=== PATIENT | female | born 1955 | race Caucasian/White ===

== ENCOUNTER → 2019-09-03 15:26 | Outpatient (CLI) | payer BC, SELFPAY ==
--- NOTE | ~2019-09-03 | MM_ITS ---
EXAMINATION: MM screening violette BI w soto HISTORY: Screening mammogram TECHNIQUE: Craniocaudal and mediolateral oblique 3-D tomosynthesis images were obtained and synthetic 2-D images were generated. CAD analysis was submitted and interpreted. COMPARISON: 06/21/2017, 11/14/2014 bilateral digital screening mammogram examinations BREAST PARENCHYMAL COMPOSITION: The breasts are almost entirely fatty. FINDINGS: There is no evidence of suspicious mass, calcification, or architectural distortion to sugg est malignancy in either breast. There has been no suspicious interval change. IMPRESSION: 1. No mammographic evidence of malignancy. 2. Recommend routine screening mammography in one year. BI-RADS Category 1: Negative Reviewed, dictated and finalized at location A.
== END ==
DX: Z12.31 Encounter for screening mammogram for malignant neoplasm of breast (principal)
CPT/HCPCS: 77063; 77067

== ENCOUNTER 2021-06-29 18:58 | Emergency (ER) | payer MEDICARE, SELFPAY ==
--- NOTE | ~2021-06-29 | XR_ITS ---
EXAMINATION: XR wrist RT min 3V EXAM DATE: 06/29/2021 19:25 INDICATION: Fall, right wrist pain. Initial encounter. TECHNIQUE: Right wrist frontal, frontal with ulnar deviation, oblique and lateral projections obtain ed and reviewed. There is no prior study for comparison. FINDINGS: There is acute closed posttraumatic right radial distal metaphyseal fracture with mild comm inution. There is intra-articular extension identified into the radiocarpal joint. There is mild vola r angulation and displacement. The ulna, carpal bones appear intact. IMPRESSION: Right radial distal metaphyseal intra-articular fractures. Reviewed, dictated and finalized at location A. LE INSTALLATION HELPER
[2021-06-29 19:18] VITALS: BP 191/74; PULSE 59; RESP 18; TEMP 35.8; O2SAT 99
--- NOTE | 2021-06-29 20:27 | ED.UPPEXIN ---
HPI - Extremity Injury (Upper) General Chief Complaint: Extremity Injury, Upper Stated Complaint: Right wrist pain and back pain Time Seen by Provider: 06/29/21 20:27 Source: patient, RN notes reviewed and old records reviewed Mode of arrival: ambulatory Limitations: no limitations History of Present Illness HPI narrative: 66-year-old female presents to the [facility] with complaints of right wrist pain after falling out of hot tub. Had a FOOSH injury. 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 No snuffbox tenderness. Sensation intact and capillary refill under 2 seconds. Related Data Allergies Allergy/AdvReac Type Severity Reaction Status Date / Time No Known Allergies Allergy Unknown Verified 06/29/21 20:26 Penicillins Allergy Unknown Unknown Verified 06/29/21 20:26 Review of Systems Review of Systems: All systems reviewed & are unremarkable except as noted in HPI and below Constitutional: Constitutional: Reports no additional constitutional complaints, Denies chills and Denies fever(s) Eyes: Eyes: Reports no additional eye complaints ENT: Reports system reviewed and no additional complaints, except as documented Cardiovascular: Cardiovascular: Reports no additional cardiovascular complaints and Denies chest pain Respiratory: Respiratory: Reports no additional respiratory complaints and Denies cough Gastrointestinal: Gastrointestinal: Reports no additional gastrointestinal complaints, Denies abdominal pain, Denies nausea and Denies vomiting Musculoskeletal: Musculoskeletal: Reports as per HPI and Reports arthralgias (Right wrist) Integumentary/Breasts: Skin/Breast: Reports system reviewed and no additional complaints, except as docu Psychiatric: Psychiatric: Reports no additional psychiatric complaints Allergic/Immunologic: Allergic/Immunologic: Reports no additional allergic/immunologic complaints [facility] Past Medical History Medical History (Updated 06/29/21 @ 20:41 by Amrita Reyes) Hypertension Surgical History Surgical History (Updated 06/29/21 @ 20:41 by Amrita Reyes) No significant past surgical history Family History Family History Father Patient's father is Social History Social History Smoking status: Never smoker Alcohol intake: current Comments At the time of my signature, I reviewed and agree with the nursing past medical, surgical, social, and family history. There is no relevant family history pertinent to the patient complaint. Exam Const: General: no acute distress, alert and ill appearing chronically Nutritional Appearance: well nourished Orientation/consciousness: patient oriented x3 Limitations: no limitations HENMT: Head: normal to inspection Eyes: Pupils: Equal, round and reactive pupils present Neck: Neck: normal visual inspection, no lymphadenopathy and no meningeal signs Chest: Chest palpation & inspection: normal inspection of the chest Resp: Effort & Inspection: normal respiratory effort and no use of accessory muscles Auscultation: clear to auscultation bilaterally, no crackles, no rales, no rhonchi and no wheezes Cardio: Rate: regular rate Rhythm: regular rhythm GI: GI Palp: Yes Soft to palpation and Yes Tenderness to palpation present (GI) Skin: General skin exam: normal color Rashes: no rashes Wounds: no wounds Neuro: General: patient oriented x3, moves all extremities, no meningeal signs and no focal motor deficits Speech: normal speech Gait exam (Neuro): Normal gait present Extrem: General: normal to inspection and full ROM Right upper extremity: wrist tenderness of the distal radius, swelling of the dorsal wrist and other, normal vascular exam and radial pulse present; no ecchymosis, no penetrating wound and no deformity Psych: Appearance: grossly normal and well kempt Mental Status: mental status grossly normal Affect: normal affect Attitude:
== END 2021-06-29 20:40 | disposition home or self-care (01) ==
PROVIDERS: Emergency Provider Nurse Practitioner; PCP Family Medicine
DX: S52.571A Other intraarticular fracture of lower end of right radius, initial encounter for closed fracture (principal); W19.XXXA Unspecified fall, initial encounter; I10 Essential (primary) hypertension
CPT/HCPCS: 29125; 73110; 99214; A4565; G0463

== ENCOUNTER 2021-09-16 08:30 | Outpatient (RCR) | payer MEDICARE, SELFPAY ==
--- NOTE | 2021-08-21 10:01 | OTOPEVAL ---
OCCUPATIONAL THERAPY INITIAL EVALUATION REPORT Thank you for referring Kayley Rose to [facility].? The patient is scheduled to be seen for therapy? 2x/week for 4 weeks. Please review, sign, date and return this plan of care LINNEA. I agree with and certify that the following plan of care is medically necessary. Referring Physician Date Referring Provider: Cristian Peoples MD *OT Outpatient Evaluation Start: 08/21/21 09:00 Outpatient Past Medical History Past Medical History Source of Past Medical History Recalled from Previous Visit, Confirmed with Patient/Family Cardiovascular History Hx Hypertension Yes Musculoskeletal History Hx Arthritis Yes: lumbar and sacral Evaluation Information Problem Diagnosis Right distal radius fracture Onset 06/29/21 Cause Fall Additional Evaluation Detail Treated conservatively with casting and she is now in a removable brace. Subjective Information Patient reports she progressed Query Text:As Reported By Patient/ from a cast to a removable Family brace on 08/12/21. Orders report to wear the brace x4 weeks, then wean out. She reports difficulties using the right hand to feed herself, starting her car, and washing her hair. She reports being very apprehensive to use her right hand. Prior Level of Function Activity Level (Last 3 Months) Hand Dominance Right Activity of Daily Living Ability Independent Comments Additional Prior Level of Function Patient reports being back to Comments being independent with ADLs and driving. She is doing some cooking and cleaning, but only with her left hand. At this time her is doing most of the cooking and cleaning. Her son is doing the laundry. Pain Assessment Timing of Pain Assessment Timing of Pain Assessment Assessment Pain Scale Pain Scale Used Numeric (1 - 10) Self Report Pain Assessment Right Wrist(s) Reported Pain Level 0 Lowest Pain Intensity 0 Greatest Pain Intensity 10 Pain Score Pain Score 0: Self Report Upper Extremity Range of Motion Elbow/Forearm Range of Motion Right Forearm Supination - Active 30 Forearm Pronation - Active 90 Elbow/Forearm Range of Motion Comments Elbow flexion/extension is WNL Wrist
--- NOTE | 2021-09-16 09:10 | OTOPEVAL ---
OCCUPATIONAL THERAPY RE-EVALUATION REPORT AND DISCHARGE SUMMARY 09/16/21 Patient presents today, 11 weeks following right distal radius fracture, for OT re-evaluation after she attended 8 therapy sessions. She has progressed well with functional ROM and strength. She reports no functional limitations at this time. She is currently independent with ROM and strengthening HEP and is ready for discharge. It was recommended that she continue to diligently complete her HEP for another month until she follows up with . Thank you for referring Kayley Rose to [facility]. Please review, sign, date and return this D/C Note LINNEA. I agree with and certify that the following plan of care is medically necessary. Referring Physician Date Referring Provider: Cristian Peoples MD *OT Outpatient Re-Evaluation Diagnosis Right distal radius fracture Onset 06/29/21 Cause Fall Additional Evaluation Detail Treated conservatively. Subjective Information Kayley reports that she has Query Text:As Reported By Patient/ improved a lot in the last Family month. She states that she is using her hand for more ADL tasks and she is no longer afraid to use it . She is now able to use the right hand to start the car, cooking, eating, holding utensils normally, carrying her purse, and being able to curl her hair. She reports stiffness every morning in the wrist/hand, but states that it loosens up quicker than it used to. Pain Assessment Timing of Pain Assessment Timing of Pain Assessment Re-assessment Pain Scale Pain Scale Used Numeric (1 - 10) Self Report Pain Assessment Right Wrist(s) Reported Pain Level 0 Lowest Pain Intensity 0 Greatest Pain Intensity 3 Pain Score Pain Score 0: Self Report Upper Extremity Range of Motion Elbow/Forearm Range of Motion Right Forearm Supination - Active 80 Forearm Pronation - Active 90 Elbow/Forearm Range of Motion Comments Supination improved from 30* Pronation remained WNL/90* Wrist Range of Motion Right Wrist Flexion - Active 60 Wrist Extension - Active 45 Wrist Radial Deviation - Active 15 Wrist Ulnar Deviation - Active 20 Wrist Range of Motion Comments Flexion improved from 45* Extension improved from 30* RD improved from 5* UD improved from 15* At the start of care she had 10/[address] Today she
== END 2021-09-17 09:13 | disposition home or self-care (01) ==
LOC: ANHOT 08:30
PROVIDERS: PCP Family Medicine; Visit Provider Orthopaedic Surgery
DX: S52.571D Other intraarticular fracture of lower end of right radius, subsequent encounter for closed fracture with routine healing (principal)
CPT/HCPCS: 97018; 97110; 97140; 97165

== ENCOUNTER 2022-08-04 10:40 | Outpatient (CLI) | payer MEDICARE, SELFPAY ==
[2022-08-04 20:48] LABS: Alanine Aminotransferase 25 U/L (6-35); Albumin Level 4.4 g/dL (3.5-5.1); Alkaline Phosphatase 122 U/L (38-126); Anion Gap 6 mmol/L (8-16); Aspartate Amino Transferase 42 U/L (14-36); Bilirubin,Total 0.8 mg/dL (0.2-1.3); Blood Urea Nitrogen 15 mg/dL (7-17); Calcium 9.5 mg/dL (8.4-10.2); Carbon Dioxide 26 mmol/L (22-30); Chloride 105 mmol/L (98-107); Cholesterol 286 mg/dL (0-200); Estimated Glomerular Filt Rate > 60; Glucose 92 mg/dL (65-110); HDL Direct 46 mg/dL; Potassium 4.7 mmol/L (3.4-5.0); Sodium 137 mmol/L (137-145); Triglycerides 237 mg/dL (<150)
[2022-08-04 20:59] LABS: LDL Cholesterol Direct 153 mg/dL
[2022-08-04 21:44] LABS: Basophils Absolute Auto 0.1 K/mm3 (0.0-0.1); Eosinophils Absolute Auto 0.2 K/mm3 (0-0.3); Eosinophils Percent Auto 3.1 % (0-4.4); Hematocrit 42.9 % (37.0-47.0); Hemoglobin 13.5 g/dL (12.0-15.0); Immature Granulocyte Absolute 0.01 K/mm3 (0.00-0.031); Immature Granulocyte Percent A 0.2 % (0-0.5); Lymphocytes Absolute Auto 2.33 K/mm3 (0.9-3.2); Lymphocytes Percent Auto 38.4 % (18.3-44.2); Mean Corpuscular HGB Conc 31.5 g/dl (32-36); Mean Corpuscular Hemoglobin 32.5 pg (26-34); Mean Corpuscular Volume 103.1 fl (80-100); Mean Platelet Volume 10.5 fl (7.4-10.4); Monocytes Absolute Auto 0.5 K/mm3 (0.1-0.6); Monocytes Percent Auto 7.6 % (2.6-8.5); Neutrophils Percent Auto 49.7 % (45.5-73.1); Platelet Count Result 253 k/mm3 (150-375); Red Blood Count 4.16 M/mm3 (4.2-5.4); Red Cell Distribution Width 12.8 % (11.5-14.5); White Blood Count 6.1 K/mm3 (4.5-10.0)
== END 2022-08-04 10:41 | disposition home or self-care (01) ==
PROVIDERS: PCP Family Medicine; Visit Provider Family Medicine
DX: M47.817 Spondylosis without myelopathy or radiculopathy, lumbosacral region (principal); Z00.00 Encounter for general adult medical examination without abnormal findings; I10 Essential (primary) hypertension; Z90.710 Acquired absence of both cervix and uterus
CPT/HCPCS: 36415; 80053; 80061; 85025

== ENCOUNTER → 2022-10-19 12:02 | Outpatient (CLI) | payer MEDICARE, SELFPAY ==
--- NOTE | ~2022-10-19 | MM_ITS ---
EXAMINATION: MM screening violette BI w soto HISTORY: Screening mammogram TECHNIQUE: Craniocaudal and mediolateral oblique 3-D tomosynthesis images were obtained and synthetic 2-D images were generated. CAD analysis was submitted and interpreted. COMPARISON: 09/03/2019, 06/21/2017, 11/14/2014 bilateral screening mammogram examinations BREAST PARENCHYMAL COMPOSITION: The breasts are almost entirely fatty. FINDINGS: There is no evidence of suspicious mass, calcification, or architectural distortion to sugg est malignancy in either breast. There has been no suspicious interval change. IMPRESSION: 1. No mammographic evidence of malignancy. 2. Recommend routine screening mammography in one year. BI-RADS Category 1: Negative Reviewed, dictated and finalized at location A.
--- NOTE | ~2022-10-19 | DEXA_ITS ---
Bone Density Report Name: MINOR MARCOS Age: 67 Sex: Female Ethnicity: White Date of : 1955 Indication: postmenopausal; screening for osteoporosis; parental hip fracture; height loss; prior fracture; hysterectomy; Referring Provider: CHENTE BENNETT Study: Bone densitometry was performed. Exam Date: October 19, 2022 Accession number: [id number] Bone Density: Region BMD T-score Z-score Classification AP Spine (L1, L3, L4) 0.884 -1.5 0.4 Osteopenia Femoral Neck (Left) 0.649 -1.8 -0.2 Osteopenia Total Hip (Left) 0.719 -1.8 -0.5 Osteopenia Femoral Neck (Right) 0.630 -2.0 -0.3 Osteopenia Total Hip (Right) 0.706 -1.9 -0.6 Osteopenia Total Hip Mean 0.713 -1.9 -0.6 Osteopenia World Health Organization criteria for BMD impression classify patients as: Normal (T-score at or above -1.0), Osteopenia (T-score between -1.0 and -2.5), or Osteoporosis (T-score at or below -2.5). 10-year Fracture Risk(1): Major Osteoporotic Fracture 28% Hip Fracture 3.9% Reported Risk Factors: [place] (), Neck BMD=0.630, BMI=30.9, previous fracture, parental fracture (1) FRAX(R) Version 3.08. Fracture probability calculated for an untreated patient. Fracture probability may be lower if the patient has received treatment. Clinical Information Provided by Patient: Has had a low trauma fracture Parent has had a hip fracture Has used the following medications: Vitamin D, Calcium Has the following medical conditions: Hysterectomy Patient maximum height was 63 Menopause Age: 55 Does not regularly consume dairy products Drinks caffeinated beverages Onset of menses at age 16 Number of children 2 Impression: The patient has low bone mass, based on the Right Femoral Neck T-score. The patient has an estimated ten-year risk of hip fracture of 3.9% and an estimated ten-year risk of major fracture of 28%, based on the WHO FRAX algorithm. The patient has risk factors, including: parental hip fracture, previous fracture. Discussion: BONE DENSITY IS LOW AT ONE OR MORE SKELETAL SITES. THE PATIENT'S BMD AND CLINICAL RISK FACTORS CONTRIBUTE TO THIS PATIENT'S HIGH RISK OF FRACTURE. This patient's lowest T-score is low at one or more skeletal sites. It meets the World Health Organization's (WHO) criteria for ?low bone mass? (T-score between -1.0 and -2.5). The patient's 10-year risk of hip fracture and 10 year risk of a major osteoporotic fracture as calculated by FRAX exceeds the threshold where pharmacological therapy is recommended by the National Osteoporosis Foundation (NOF). However, all treatment decisions require clinical judgment and consideration of individual patient factors, including patient preferences, comorbidities, previous drug use, risk factors not captured in the FRAX model (e.g., frailty, falls, vitamin D de
== END ==
PROVIDERS: PCP Family Medicine; Visit Provider Family Medicine
DX: Z12.31 Encounter for screening mammogram for malignant neoplasm of breast (principal); Z78.0 Asymptomatic menopausal state; M85.89 Other specified disorders of bone density and structure, multiple sites
CPT/HCPCS: 77063; 77067; 77081

== ENCOUNTER 2023-09-20 12:42 | Outpatient (CLI) | payer MEDICARE, SELFPAY ==
[2023-09-20 13:54] LABS: Hematocrit 44.3 % (37.0-47.0); Hemoglobin 14.5 g/dL (12.0-15.0); Mean Corpuscular HGB Conc 32.7 g/dl (32-36); Mean Corpuscular Hemoglobin 32.7 pg (26-34); Mean Platelet Volume 10.3 fl (7.4-10.4); Platelet Count Result 242 k/mm3 (150-375); Red Blood Count 4.43 M/mm3 (4.2-5.4); White Blood Count 6.9 K/mm3 (4.5-10.0)
[2023-09-20 13:58] LABS: Alanine Aminotransferase 29 U/L (6-35); Albumin Level 4.5 g/dL (3.5-5.1); Alkaline Phosphatase 107 U/L (38-126); Anion Gap 7 mmol/L (4-12); Aspartate Amino Transferase 31 U/L (14-36); Bilirubin,Total 0.7 mg/dL (0.2-1.3); Blood Urea Nitrogen 14 mg/dL (7-17); Calcium 10.4 mg/dL (8.4-10.2); Carbon Dioxide 27 mmol/L (22-30); Chloride 106 mmol/L (98-107); Cholesterol 244 mg/dL (0-200); Estimated Glomerular Filt Rate > 60; Glucose 112 mg/dL (65-110); HDL Direct 55 mg/dL; Potassium 4.7 mmol/L (3.4-5.0); Sodium 140 mmol/L (137-145); Triglycerides 287 mg/dL (<150)
[2023-09-20 14:09] LABS: LDL Cholesterol Direct 142 mg/dL
== END 2023-09-20 12:43 | disposition home or self-care (01) ==
PROVIDERS: PCP Family Medicine; Visit Provider Family Medicine
DX: M47.817 Spondylosis without myelopathy or radiculopathy, lumbosacral region (principal); S52.501A Unspecified fracture of the lower end of right radius, initial encounter for closed fracture; Z90.710 Acquired absence of both cervix and uterus; I10 Essential (primary) hypertension; X58.XXXA Exposure to other specified factors, initial encounter
CPT/HCPCS: 36415; 80053; 80061; 85027

== ENCOUNTER 2023-09-28 15:17 | Outpatient (CLI) | payer MEDICARE, SELFPAY | END 2023-09-28 15:18 | disposition home or self-care (01) | PROVIDERS: PCP Family Medicine; Visit Provider Family Medicine | DX: E83.52 Hypercalcemia (principal) | CPT/HCPCS: 36415; 82330 ==

== ENCOUNTER 2023-10-05 12:48 | Outpatient (CLI) | payer MEDICARE, SELFPAY ==
[2023-10-12 13:14] LABS: Ionized Calcium 5.7 mg/dL (4.7-5.5)
== END 2023-10-05 12:49 | disposition home or self-care (01) ==
PROVIDERS: PCP Family Medicine; Visit Provider Family Medicine
DX: E83.52 Hypercalcemia (principal)
CPT/HCPCS: 36415; 82330

== ENCOUNTER 2023-11-22 09:37 | Outpatient (CLI) | payer MEDICARE, SELFPAY ==
[2023-11-23 16:09] LABS: Ionized Calcium 5.1 mg/dL (4.7-5.5)
== END 2023-11-22 09:38 | disposition home or self-care (01) ==
PROVIDERS: PCP Family Medicine; Visit Provider Family Medicine
DX: E83.52 Hypercalcemia (principal)
CPT/HCPCS: 36415; 82330

== ENCOUNTER 2024-03-14 11:23 | Outpatient (CLI) | payer MEDICARE, SELFPAY ==
[2024-03-14 12:15] LABS: Hematocrit 43.5 % (37.0-47.0); Hemoglobin 14.1 g/dL (12.0-15.0); Mean Corpuscular HGB Conc 32.4 g/dl (32-36); Mean Corpuscular Hemoglobin 32.6 pg (26-34); Mean Corpuscular Volume 100.7 fl (80-100); Mean Platelet Volume 10.3 fl (7.4-10.4); Platelet Count Result 245 k/mm3 (150-375); Red Blood Count 4.32 M/mm3 (4.2-5.4); Red Cell Distribution Width 12.2 % (11.5-14.5); White Blood Count 6.2 K/mm3 (4.5-10.0)
[2024-03-14 12:30] LABS: Alanine Aminotransferase 24 U/L (6-35); Albumin Level 4.5 g/dL (3.5-5.1); Alkaline Phosphatase 101 U/L (38-126); Anion Gap 11 mmol/L (4-12); Aspartate Amino Transferase 35 U/L (14-36); Bilirubin,Total 0.7 mg/dL (0.2-1.3); Blood Urea Nitrogen 17 mg/dL (7-17); Calcium 10.1 mg/dL (8.4-10.2); Carbon Dioxide 21 mmol/L (22-30); Chloride 105 mmol/L (98-107); Estimated Glomerular Filt Rate > 60; Glucose 101 mg/dL (65-110); Potassium 4.8 mmol/L (3.4-5.0); Sodium 137 mmol/L (137-145)
[2024-03-14 13:03] LABS: Hemoglobin A1C 5.7 % (<5.7)
== END 2024-03-14 11:24 | disposition home or self-care (01) ==
LOC: ANHLAB 11:27
PROVIDERS: PCP Family Medicine; Visit Provider Family Medicine
DX: E83.52 Hypercalcemia (principal); Z90.710 Acquired absence of both cervix and uterus; R73.03 Prediabetes
CPT/HCPCS: 36415; 80053; 83036; 85027

== ENCOUNTER 2024-08-01 12:39 | Outpatient (CLI) | payer MEDICARE, SELFPAY ==
--- NOTE | ~2024-08-01 | MM_ITS ---
EXAMINATION: MM screening violette BI w soto HISTORY: Screening TECHNIQUE: Craniocaudal and mediolateral oblique 3-D tomosynthesis images were obtained and synthetic 2-D images were generated. CAD analysis was submitted and interpreted. COMPARISON: No prior mammogram is available for comparison at this institution. BREAST PARENCHYMAL COMPOSITION: Not Dense: The breasts are almost entirely fatty. FINDINGS: There is no evidence of suspicious mass, calcification, or architectural distortion to sugg est malignancy in either breast. There has been no suspicious interval change. IMPRESSION: 1. No mammographic evidence of malignancy. 2. Recommend routine screening mammography in one year. BI-RADS Category 1: Negative Reviewed, dictated and finalized at location B. ET RESEARCH LEAD
== END 2024-08-01 12:40 | disposition home or self-care (01) ==
LOC: MICIMG 12:40
PROVIDERS: PCP Family Medicine; Visit Provider Family Medicine
DX: Z12.31 Encounter for screening mammogram for malignant neoplasm of breast (principal); I10 Essential (primary) hypertension; S52.501A Unspecified fracture of the lower end of right radius, initial encounter for closed fracture; M47.817 Spondylosis without myelopathy or radiculopathy, lumbosacral region; Z90.710 Acquired absence of both cervix and uterus; X58.XXXA Exposure to other specified factors, initial encounter
CPT/HCPCS: 77063; 77067

== ENCOUNTER 2024-11-06 09:55 | Outpatient (CLI) | payer MEDICARE, SELFPAY ==
--- OUTSIDE RECORDS SUMMARY | 2024-11-06 10:06 | XMS_ITS | Encounter Summary ---
Author Organization [facility] Address [address] [place] [id number] Care Team Providers Care Process Tank Tender Name Role Phone Clarita Logan MD Primary Care Provider [phone] Encounter Details Date Type Department Care Team (Late st Contact Info) Description 08/27/2022 [id number] Message Enc [facility] [address] [place] [address] [facility] Provider Overdue for Annual Physical Social History Tobacco Use Types Packs/Day Years Used Date Smoking Tobacco: Never Smokeless Tobacco: Never Alcohol Use Standard Drinks/Week Comments Yes 0 (1 standard drink = 0.6 oz pur e alcohol) AUDIT-C Answer Date Recorded Frequency of Alcohol Consumption Monthly or less 05/14/2019 Average Number of Drinks Not on file 019 Frequency of Binge Drinking Not on file 04/27 Comments Unknown Sex and Gender Information Value Date Recorded Sex Assigned at Not on file Legal Sex Female 6:49 PM CDT Gender Identity Not on file Sexual Orientation Not on file documented as of this encounter Plan of Treatment Not on file documented as of this encounter Visit Diagnoses Not on filedocumented in this encounter Care Teams Process Tank Tender Relationship Specialty Start Date End Date Clarita Logan MD [address] [place], [place] [id number] PCP - General FAMILY PRACTICE 06/29/22 05/30/23 documented as of this encounter
--- OUTSIDE RECORDS SUMMARY | 2024-11-06 10:06 | XMS_ITS | Clinical Summary ---
Author Organization [facility] Address [address] [place] [id number] Care Team Providers Care Process Lead Name Role Phone Unavailable Primary Care Provider Unavailabl e Allergies No known active allergies Medications Turmeric 500 MG Cap Active vitamin D3, cholecalciferol , 5000 UNITS capsule Take 1 capsule by mouth daily. Active omega-3 fatty acid 500 MG capsule Take 500 mg by mouth daily. Active Garlic 1000 MG capsule Take 1,000 mg by mouth daily. Active Multiple Vitamins-Minera ls (Degree [employer] EYE HEALTH) Cap Active Misc Natural Products (CHLORELLA) 500 MG Cap Active cranberry 500 MG Cap Take 1 capsule by mouth 3 (three) times daily. Active Cyanocobalamin (VITAMIN B-12) [address] 1 tablet under the tongue daily. Active Leci-Sitosterol -Hrl-Otyb-Ubvu (CHOLESTEROL FIGHTER OR) Take 1 tablet by mouth daily. Active Active Problems Problem Noted Date Diagnosed Date Otitis externa, unspecified chronicity, unspecified laterality, unspecified type 05/14/2019 Eczema, unspecified type 05/14/2019 Osteoarthritis of knee, unsp ecified laterality, unspecified osteoarthritis type 05/14/2019 Allergic rhinitis, unspecifi ed seasonality, unspecified trigger 05/14/2019 Resolved Problems Problem Noted Date Diagnosed Date Resolved Date Class 1 obesity with body ma ss index (BMI) of 30.0 to 30.9 in adult, unspecified obesity type, unspecified whether serious comorbidity present 05/14/2019 06/24/2020 Social History Tobacco Use Types Packs/Day Years [...] on file Sexual Orientation Not on file Last Filed Vital Signs Vital Sign Reading Time Taken Comments Blood Pressure 114/65 06/24/2020 7:54 AM EMBRYOLOGY TEACHER Pulse 69 06/24/2020 7:53 AM EMBRYOLOGY TEACHER Temperature - - Respiratory Rate - - Oxygen Saturation 98% 05/14/2019 2:39 PM EMBRYOLOGY TEACHER Inhaled Oxygen Concentration - - Weight 74.8 kg (165 lb) 06/24/2020 7:53 AM EMBRYOLOGY TEACHER Height 160 cm (5' 3 ) 06/24/2020 7:53 AM EMBRYOLOGY TEACHER Body Mass Index 29.23 06/24/2020 7:53 AM EMBRYOLOGY TEACHER Plan of Treatment Health Maintenance Due Date Last Done Comments Colorectal Cancer Screening Colonoscopy (10 Years) 1955 Hepatitis C 1973 DTaP, Tdap and Td Vaccines ( 1 - Tdap) 1974 Pneumococcal Vaccine: 50+ Ye ars (1 of 1 - PCV) 2005 Zoster Vaccines (1 of 2) 2005 Annual Medicare Wellness Visit 2020 Mammogram Screening 09/02/2021 09/03/2019 COVID-19 Vaccine ( - 2023-2 5 season) 2024 RSV Immunization or 60+ Years (1 - 1-dose 75+ series) 2030 Dexa Scan (General) Completed 08/04/2020 Meningococcal B Vaccine Aged Out No l onger eligible based on patient's age to complete this topic Meningococcal Vaccine Aged Out No litzy beverly eligible based on patient's age to complete this topic RSV Immunizations Under 20 Months Aged Out No longer eligible based on patient's age to complete this topic Procedures Procedure Name Priority Date/Time Associated Diagnosis Comments BONE DENSITY/DEXA Routine 08/04/2020 9:5 9 AM EMBRYOLOGY TEACHER Postmenopause MAMMOGRAM GENERIC (SCAN ORDER) Routine 09/03/2019 from Last 3 Months or Most Recently Relevant to Health Maintenance Results * BONE DENSITY/DEXA (08/04/2020 9:59 AM EMBRYOLOGY TEACHER) Anatomical Region Laterality Modality Bone Mammography 08/04/2020 11:2 1 AM EMBRYOLOGY TEACHER Impressions 08/04/2020 11:24 AM EMBRYOLOGY TEACHER =====IMPRESSION:===== Lumbar spine bone density: Osteopenia Bilateral femoral necks bone density: Osteopenia Bilateral total proximal femurs bone density: Osteopenia Comments: Lumbar spondylosis and mild scoliosis noted. Narrative 08/04/2020 11:24 AM EMBRYOLOGY TEACHER Examination: Bone Density Axial Exam date/time: 08/04/2020 9:36 AM Reason For Exam: Postmenopausal Comparison: None Findings: DEXA bone densitometry The bone mineral density (BMD) was determined by dual-energy x-ray absorptiometry, the results are as follows: AP Lumbar Spine L2 through L4: BMD Patient (GM/SQCM): 0.923 T-Score (Standard deviations from young adult peak bone density): -1.4 Bilateral femoral neck: BMD Patient (GM/SQCM): 0.647 T-Score (Standard deviations from young adult peak bone density): -1.8 Bilateral total proximal femurs: BMD Patient (GM/SQCM): 0.741 T-Score (Standard deviations from young adult peak bone density): -1.6 Procedure Note Garland Nieto MD - 08/04/2020 Examination: Bone Density Axial Exam date/time: 08/04/2020 9:36 AM Reason For Exam: Postmenopausal Comparison: None Findings: DEXA bone densitometry The bone mineral density (BMD) was determined by dual-energy x-ray absorptiometry, the results are as follows: AP Lumbar Spine L2 through L4: BMD Patient (GM/SQCM): 0.923 T-Score (Standard deviations from young adult peakbone density): -1.4 Bilateral femoral neck: BMD Patient (GM/SQCM): 0.647 T-Score (Standard deviations from young adult peakbone density): -1.8 Bilateral total proximal femurs: BMD Patient (GM/SQCM): 0.741 T-Score (Standard deviations from young adult peakbone density): -1.6 =====IMPRESSION:===== Lumbar spine bone density: Osteopenia Bilateral femoral necks bone density: Osteopenia Bilateral total proximal femurs bone density: Osteopenia Comments: Lumbar spondylosis and mild scoliosis noted. us Sarath Kwok DO DEXA Final Result * MAMMOGRAM (09/03/2019) Anatomical Region Laterality Modality Other us Documents Scanned SCANNING Edited Result - Final from Last 3 Months or Most Recently Relevant to Health Maintenance Insurance
--- OUTSIDE RECORDS SUMMARY | 2024-11-06 10:06 | XMS_ITS | Clinical Summary ---
Author Organization [facility] Address [address] [place] [address] Care Team Providers Care Assembly Instructions Writer Name Role Phone William Kim MD Primary Care Provider [phone] Source Comments [facility],non-owned Affiliates and Associated Physician Practices is amultiple site organization consisting of ambulatory clinics and hospital sitesin [place], [place], [place] and [place]. This disclosure is being madepursuant to the Care Everywhere program and may not contain all information available regarding this patient. Last updated 18.[facility] Allergies No known active allergies Medications * Be aware that medications may not be up to date on this document. Alwaysverify current medications with the patient. fluticasone propionate (FLONASE) 50 MCG/ACT nasal sprayIndication s:Bilateral acute serous otitis media, recurrence not specified,Dysfu nction of both eustachian tubes [place] 2 sprays into each nostril once daily 1 bottles 04/22/2017 Active Social History Tobacco Use Types Packs/Day Years Used Date Smoking Tobacco: Never Smokeless Tobacco: Never Comments Unknown Sex and Gender Information Value Date Recorded Sex Assigned at Not on file Legal Sex Female 4:06 PM CDT Gender Identity Not on file Sexual Orientation Not on file Last Filed Vital Signs Vital Sign Reading Time Taken Comments Blood Pressure 128/76 04/22/2017 2:32 PM CDT Pulse 56 04/22/2017 2:32 PM CDT Temperature 36.5 C (97.7 F) 04/22/2017 2:32 PM CDT Respiratory Rate 16 04/22/2017 2:32 PM CDT Oxygen Saturation 98% 04/22/2017 2:32 PM CDT Inhaled Oxygen Concentration - - Weight 77.1 kg (170 lb) 04/22/2017 2:32 PM CDT Height 160 cm (5' 3 ) 04/22/2017 2:32 PM CDT Body Mass Index 30.11 04/22/2017 2:32 PM CDT Plan of Treatment Health Maintenance Due Date Last Done Comments BONE DENSITY TESTING 1955 COLOGUARD (AGES 45-75) - COL ON CA SCREENING 1955 COLON MONITORING 1955 COLONOSCOPY - COLON CA SCREENING 1955 CT COLONOGRAPHY - COLON CA SCREENING 1955 Colorectal Cancer Screening 1955 FIT - COLON CA SCREENING 1955 FLEX SIG - COLON CA SCREENING 1955 LIPID TESTING 1955 MAMMOGRAM 1955 HEPATITIS C SCREENING 05/10/1973 DTAP/TDAP/TD VACCINES (1 - Tdap) 1974 PNEUMOCOCCAL VACCINE 50+ (1 of 1 - PCV) 2005 ZOSTER VACCINE (1 of 2) 2005 SCREENING FOR DIABETES 04/22/2017 COVID-19 VACCINE (1 - 2023-2 5 season) 2024 DEPRESSION SCREENING 06/27/2024 INFLUENZA VACCINE (Season Ended) 2025 Respiratory Syncytial Virus (RSV) Vaccine Pt: or over 60 yrs (1 - 1-dose 75+ series) 2030 HEPATITIS B VACCINE Aged Out No longe r eligible based on patient's age to complete this topic HIB VACCINE Aged Out No longer eligi ble based on patient's age to complete this topic HPV VACCINE Aged Out No longer eligi ble based on patient's age to complete this topic MENINGOCOCCAL (Group B) VACC INE SHARED DECISION-MAKING Aged Out No longer eligibl e based on patient's age to complete this topic MENINGOCOCCAL GROUPS A/C/Y/W VACCINE Aged Out No longer eligible b ased on patient's age to complete this topic Insurance [facility] [employer] Care Teams Assembly Instructions Writer Relationship Specialty Start Date End Date William Kim MD [address] [place] [address] PCP - General Internal Medicine 04/22/17
[2024-11-06 10:17] LABS: Basophils Absolute Auto 0.1 K/mm3 (0.0-0.1); Basophils Percent Auto 1.2 % (0.2-1.2); Eosinophils Absolute Auto 0.1 K/mm3 (0-0.3); Eosinophils Percent Auto 2.7 % (0-4.4); Hematocrit 39.5 % (37.0-47.0); Hemoglobin 12.8 g/dL (12.0-15.0); Immature Granulocyte Absolute 0.01 K/mm3 (0.00-0.031); Immature Granulocyte Percent A 0.2 % (0-0.5); Lymphocytes Percent Auto 36.9 % (18.3-44.2); Mean Corpuscular HGB Conc 32.4 g/dl (32-36); Mean Corpuscular Hemoglobin 31.7 pg (26-34); Mean Corpuscular Volume 97.8 fl (80-100); Mean Platelet Volume 9.9 fl (7.4-10.4); Monocytes Absolute Auto 0.4 K/mm3 (0.1-0.6); Neutrophils Absolute Auto 2.6 K/mm3 (1.3-6.7); Platelet Count Result 210 k/mm3 (150-375); Red Blood Count 4.04 M/mm3 (4.2-5.4); Red Cell Distribution Width 12.3 % (11.5-14.5); White Blood Count 5.2 K/mm3 (4.5-10.0)
[2024-11-06 10:28] LABS: Alanine Aminotransferase 27 U/L (6-35); Albumin Level 4.1 g/dL (3.5-5.1); Alkaline Phosphatase 97 U/L (38-126); Anion Gap 5 mmol/L (4-12); Aspartate Amino Transferase 39 U/L (14-36); Bilirubin,Total 1.1 mg/dL (0.2-1.3); Blood Urea Nitrogen 11 mg/dL (7-17); Calcium 9.5 mg/dL (8.4-10.2); Carbon Dioxide 24 mmol/L (22-30); Chloride 109 mmol/L (98-107); Cholesterol 250 mg/dL (0-200); Estimated Glomerular Filt Rate > 60; Glucose 110 mg/dL (65-110); HDL Direct 52 mg/dL; Potassium 4.5 mmol/L (3.4-5.0); Sodium 138 mmol/L (137-145); Triglycerides 173 mg/dL (<150)
[2024-11-06 10:39] LABS: LDL Cholesterol Direct 137 mg/dL
[2024-11-06 10:46] LABS: Vitamin D 25 Hydroxy 48.2 ng/mL
[2024-11-06 11:23] LABS: Vitamin B12 > 1000.0 pg/mL (239-931)
[2024-11-07 06:53] LABS: CRP, High Sensitivity 0.7 mg/L
== END 2024-11-06 09:56 | disposition home or self-care (01) ==
LOC: ANHLAB 09:56
PROVIDERS: PCP Family Medicine; Visit Provider Family Medicine
DX: E83.52 Hypercalcemia (principal); I10 Essential (primary) hypertension; M47.817 Spondylosis without myelopathy or radiculopathy, lumbosacral region; S52.571D Other intraarticular fracture of lower end of right radius, subsequent encounter for closed fracture with routine healing; Z79.899 Other long term (current) drug therapy; X58.XXXD Exposure to other specified factors, subsequent encounter
CPT/HCPCS: 36415; 80053; 80061; 82172; 82306; 82607; 85025; 86141